=== PATIENT | female | born 1985 | race Caucasian/White ===

== ENCOUNTER 2018-12-10 16:31 | Emergency (ER) | payer BC ==
[~2018-12-10] VITALS: Ht 160 cm; Wt 57.2 kg
--- NOTE | 2018-12-10 16:32 | NUR ---
PAOLO BERMAN, CURRENTLY AWAITING BED
[2018-12-10 16:35] VITALS: BP 119/80
--- NOTE | 2018-12-10 19:35 | NUR ---
PT WHEELCHAIRED TO ER BED 05
--- NOTE | 2018-12-10 19:41 | NUR ---
33/F BIBA. PT STATED "I'M PRETTY SURE I HAVE PARVO DISEASE FROM MY DAUGHTER." PT C/O HEADACHE, VOMITING X 20 TIMES, WEAKNESS, THAT STARTED TODAY. PT STATED THAT SHE HAS HAD COUGH, CONGESTION, RESOLVED FEVER, THE PAST 10 DAYS. PT AOX4, GCS 15, RR EVEN AND UNLABORED. DENIES MED HX OR RX.
--- NOTE | 2018-12-10 19:44 | NUR ---
DR. LAMBERT AT BEDSIDE FOR EVALUATION.
[2018-12-10 20:22] VITALS: BP 99/63
--- NOTE | 2018-12-10 20:22 | NUR ---
Patient discharged with v/s stable. Written and verbal after care instructions given and explained. Patient alert, oriented and verbalized understanding of instructions. Ambulatory with steady gait. All questions addressed prior to discharge. ID band removed. Patient advised to follow up with PMD. Rx of ZOFRAN ODT, PROMETHAZINE/DEXTROMETHORPHAN, MOTRIN, AMOXICILLIN given. Patient educated on indication of medication including possible reaction and side effects. Opportunity to ask questions provided and answered.
== END 2018-12-10 20:22 | disposition home or self-care (01) ==
LOC: MED 16:31
DX: J02.8 Acute pharyngitis due to other specified organisms (principal); B96.89 Other specified bacterial agents as the cause of diseases classified elsewhere; J04.0 Acute laryngitis; Z90.49 Acquired absence of other specified parts of digestive tract; Z88.8 Allergy status to other drugs, medicaments and biological substances
CPT/HCPCS: 70450; 81002; 81025; 99284

== ENCOUNTER 2021-03-08 08:17 | Emergency (ER) | payer BC, MEDICAID ==
[~2021-03-08] VITALS: Ht 160 cm; Wt 54.4 kg
[2021-03-08 08:25] VITALS: BP 134/82
--- NOTE | 2021-03-08 08:33 | NUR ---
35 FEMALE COMPLAINS OF CHEST PAIN X 2 WEEKS. PT STATES THAT CHEST PAIN WAS IN MORNING FOR 3-4MIN OF SEVERE CRAMPING THAT RADIATED TO BACK. PT DENIES CHEST PAIN AT THIS TIME. PT STATES SHE FELT LIGHTHEADED/DISORIENTED, BUT DENIES LOC. PT AOX4, BREATHING EVEN AND UNLABORED, SKIN WARM AND DRY. BED IN LOWEST POSITION, LOCKED, SEMI-VIRAMONTES POSITION, BED RAIL UPX1. PT ON MONITOR, ERMD AWARE. PMH - DENIES ALLERGIES - NKA
[2021-03-08] MEDS ORDERED: ASPIRIN 81 MG TAB.CHEW PO ONE (08:35)
[2021-03-08 08:46] LABS: BASOPHILS % (AUTO) 0.6 % (0.0-2.0); EOSINOPHILS # (AUTO) 0.1 K/uL (0-0.4); EOSINOPHILS % (AUTO) 1.6 % (0.0-4.0); HEMATOCRIT 44.1 % (36-48); HEMOGLOBIN 14.5 g/dL (12.0-16.0); LYMPHOCYTES # (AUTO) 1.9 K/uL (2.5-16.5); LYMPHOCYTES % (AUTO) 48.7 % (20.5-51.1); MEAN CORPUSCULAR HEMOGLOBIN 30 pg (27-31); MEAN CORPUSCULAR HGB CONC 33 g/dL (33-37); MEAN CORPUSCULAR VOLUME 89.8 fL (80-94); MONOCYTES # (AUTO) 0.3 K/uL (0.8-1.0); MONOCYTES % (AUTO) 7.3 % (1.7-9.3); NEUTROPHILS # (AUTO) 1.6 K/uL (1.8-7.7); NEUTROPHILS % (AUTO) 41.8 % (42.2-75.2); PLATELET COUNT (AUTO) 217 K/uL (140-450); RED BLOOD CELL COUNT(AUTO) 4.91 MIL/uL (4.20-5.40); WHITE BLOOD COUNT (AUTO) 3.8 K/uL (4.8-10.8)
[2021-03-08] MEDS ORDERED: ONDANSETRON 4 MG ODT PO ONE (08:50)
--- NOTE | 2021-03-08 10:30 | NUR ---
PT ALERT AND AWAKE, BREATHING EVEN AND UNLABORED. PT STATES MILD CHEST DISCOMFORT, BUT DOES NOT WANT MEDICATIONS. ERMD AWARE
[2021-03-08 11:51] LABS: ANION GAP 11.9 (8-16); CARBON DIOXIDE 27.2 mmol/L (21-32); CREATININE 0.8 mg/dL (0.6-1.3); POTASSIUM 4.1 mmol/L (3.5-5.1)
[2021-03-08 11:52] LABS: ALBUMIN 4.4 g/dL (3.4-5.0); TOTAL BILIRUBIN 0.5 mg/dL (0.0-1.0)
--- NOTE | 2021-03-08 12:00 | NUR ---
PT ALERT AND AWAKE, BREATHING EVEN AND UNLABORED. NO DISTRESS NOTED. WILL CONTINUE TO MONITOR.
--- NOTE | 2021-03-08 12:02 | NUR ---
PT LEFT ROOM WITHOUT INFORMING STAFF
[2021-03-08 12:16] VITALS: BP 111/62
--- NOTE | 2021-03-08 12:16 | NUR ---
PT HAS NOT RETURNED TO ROOM, ERMD AWARE.
== END 2021-03-08 12:16 | disposition home or self-care (01) ==
LOC: MED 08:17
DX: R07.9 Chest pain, unspecified (principal); R42 Dizziness and giddiness; R11.0 Nausea; Z88.8 Allergy status to other drugs, medicaments and biological substances
CPT/HCPCS: 36415; 71045; 80053; 81025; 83690; 83880; 84484; 85025; 85379; 93005; 99285; Q0162